=== PATIENT | male | born 1960 | race Caucasian/White ===

== ENCOUNTER 2018-12-06 09:48 | Day surgery (SDC) | payer OTHER ==
[2018-12-04 08:50] VITALS: BMI 29.8
[~2018-12-06 09:48] MED LIST: LACTATED RINGERS 1,000 ML IV SCH; LIDOCAINE 1% 20 ML VIAL (10MG/ML) FOR IV START INTRADERMA PRN
[2018-12-06] MEDS ORDERED: LACTATED RINGERS 1,000 ML IV ONE (10:33)
[2018-12-06 10:34] VITALS: RESP 18; TEMP 98.2
[2018-12-06] MEDS ORDERED: PROPOFOL 10 MG/ML 20 ML VIAL IV ONE (11:44)
--- NOTE | 2018-12-06 12:17 | P.PCN ---
Date of Procedure: 12/06/18 Procedure(s) Performed: Procedure: Colonoscopy and polypectomy. Preoperative diagnosis: Screening for neoplasia, patient has history of polyps. Postoperative diagnosis: 3 small polyps snared but no large polyps or cancer. Preparation: HalfLytely prep. Sedation: Was provided by anesthesia. Brief clinical history: The patient is a 58-year-old male who was scheduled for this evaluation for screening for neoplasia because of history of polyps as well as age as risk factor. His last colonoscopy was at age 51 and he had 5 or 6 polyps removed at that time. The patient has no abdominal complaints, bleeding or anemia. Procedure: With the patient on his left lateral decubitus position and after informed consent and adequate sedation, the perianal area was inspected and it did not show any fissures or fistulas. There were no masses felt on digital rectal examination. The Olympus CFH 190L video colonoscope was then inserted in the rectum in the usual fashion and advanced to the cecum. There were 2 small polyps around the hepatic flexure and 1 small polyp around the splenic flexure that were snared and retrieved by suction but there were no large polyps or cancer. I retroflexed the endoscope in the rectum before the endoscope was withdrawn. The patient tolerated the procedure well. Plan: The patient was reassured. He will follow up with you as planned and I recommended repeat exam in 5 years.
[2018-12-06] MEDS ORDERED: hydrALAZINE HCL 20 MG/ML 1 ML VIAL IVP STA (12:36)
[2018-12-06 12:53] VITALS: BP 157/96; PULSE 72
== END 2018-12-06 13:08 | disposition home or self-care (01) ==
LOC: ORWHC2ENDO 09:48
DX: Z12.11 Encounter for screening for malignant neoplasm of colon (principal); D12.3 Benign neoplasm of transverse colon; Z86.010 Personal history of colon polyps; E78.5 Hyperlipidemia, unspecified; F31.9 Bipolar disorder, unspecified; F17.210 Nicotine dependence, cigarettes, uncomplicated; Z79.899 Other long term (current) drug therapy; Z88.1 Allergy status to other antibiotic agents; Z85.828 Personal history of other malignant neoplasm of skin
CPT/HCPCS: 88305; 45385; J0360; J2704

== ENCOUNTER → 2019-10-31 | Outpatient (CLI) | payer OTHER ==
--- NOTE | 2019-10-31 10:43 | CT ---
EXAMINATION TYPE: CT soft tissue neck w con DATE OF EXAM: 10/31/2019 COMPARISON: None HISTORY: 59 year-old male right sided swelling marked by BB. TECHNIQUE: Contiguous axial scanning of the soft tissues of the neck performed with IV Contrast, emily ent injected with 100 mL of Isovue 300. Coronal/sagittal reconstructions performed. CT DLP: 714.3 mGycm Automated exposure control for dose reduction was used. FINDINGS: There is an irregular cystic lesion within the superficial lobe of the right parotid gland with mild peripheral rim enhancement measuring 1.1 x 1.1 cm. Overlying palpable marker. There is some mild surr ounding fat stranding involving the right parotid gland. In addition, mildly enlarged lymph nodes just below the tail of the right parotid gland measure up to 1.2 cm. Submandibular and thyroid gland is satisfactory. Incidental lipoma involving the right posterior neck musculature measuring 4.4 cm long and 2.1 cm wid e. No internal soft tissue complexity is seen. Visualized intracranial structures, orbits and globes, and mastoid air cells appear clear. Large polyps or mucosal retention cysts along the floors of the left greater than right maxillary sin uses. Nasopharynx is clear. There seems to be some hypertrophy along the level of the tubal and palatine to nsils. Some associated punctate calcification can be seen as a sequela of prior infection. Epiglottis and prevertebral soft tissues within normal limits. Gliotic and subglottic structures as well as the tracheal column and visualized upper lungs are clear . Bones: Mild degenerative changes in the lower cervical spine. IMPRESSION: 1. THERE SEEMS TO BE SOME MILD INFLAMMATION CENTERED AT THE RIGHT PAROTID GLAND. OVERLYING PALPABLE M ARKER WITH A 1.1 BY 1.1 CM IRREGULAR CYSTIC LESION WITHIN THE SUPERFICIAL LOBE OF THE RIGHT PAROTID G LAND. IN THE SETTING OF PAROTITIS, A SMALL INTRAPAROTID ABSCESS IS IN THE DIFFERENTIAL. A CYSTIC SALI VARY GLAND TUMOR IS ALSO A DIFFERENTIAL CONSIDERATION AND FURTHER CLINICAL CORRELATION IS RECOMMENDED . FOLLOW-UP AFTER ANY POTENTIAL TREATMENT. 2. ASYMMETRICALLY ENLARGED LYMPH NODES IN THE RIGHT UPPER NECK JUST BELOW THE RIGHT PAROTID TAIL WAQAS URING UP TO 1.2 CM. LIKELY REACTIVE/POST INFLAMMATORY. AGAIN, FOLLOW-UP AFTER TREATMENT. 3. 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
== END | disposition home or self-care (01) ==
LOC: RADCTMAIN 09:07
DX: J35.1 Hypertrophy of tonsils (principal); K11.8 Other diseases of salivary glands; R59.0 Localized enlarged lymph nodes; Z88.5 Allergy status to narcotic agent; Z88.1 Allergy status to other antibiotic agents
CPT/HCPCS: 70491; Q9967